=== PATIENT | female | born 1990 | race African-American/Black ===

== ENCOUNTER 2016-07-20 19:08 | Emergency (ER) | payer MEDICAID ==
[~2016-07-20] VITALS: Ht 167.6 cm; Wt 54.0 kg
[2016-07-20] MEDS ORDERED: ONDANSETRON HCL 4MG/2ML VIAL IV STA (20:28)
[2016-07-20] MEDS ORDERED: SODIUM CHLORIDE 0.9% 500 ML IV ONE (20:28)
[2016-07-20] MEDS ORDERED: FAMOTIDINE 20MG/2ML VIAL IV ONE (20:30)
[2016-07-20 21:12] LABS: CLARITY URINE CLEAR (CLEAR); COLOR URINE YELLOW (YELLOW); GLUCOSE URINE NEGATIVE (NEGATIVE); KETONES URINE TRACE (NEGATIVE); LEUKOCYTE ESTERASE URINE NEGATIVE (NEGATIVE); NITRITE URINE NEGATIVE (NEGATIVE); OCCULT BLOOD URINE NEGATIVE (NEGATIVE); PH URINE 6.5 (4.5-8.0); PROTEIN URINE NEGATIVE (NEGATIVE); SPECIFIC GRAVITY URINE 1.024 (1.005-1.030)
[2016-07-20 21:45] VITALS: BP 111/70
== END 2016-07-20 22:00 | disposition home or self-care (01) ==
LOC: ER 20:57
DX: K52.9 Noninfective gastroenteritis and colitis, unspecified (principal)
CPT/HCPCS: 81003; 81025; 96361; 96374; 96375; 99284; J2405; J3490; J7030; J7040; Z7610

== ENCOUNTER 2020-12-28 10:10 | Emergency (ER) | payer MEDICAID ==
[~2020-12-28] VITALS: Ht 165.1 cm; Wt 69.0 kg
[2020-12-28 10:14] VITALS: BP 125/81
[2020-12-28] MEDS ORDERED: CYCL5TAB MT (12:05)
== END 2020-12-28 12:03 | disposition home or self-care (01) ==
LOC: ER 10:10
DX: M54.9 Dorsalgia, unspecified (principal); N64.4 Mastodynia
CPT/HCPCS: 71045; 72070; 81025; 99284